=== PATIENT | female | born 2000 | race Asian ===

== ENCOUNTER 2022-12-24 12:47 | Outpatient (REF) | payer MEDICAID, SELFPAY ==
--- NOTE | ~2022-12-24 | XR_ITS ---
EXAMINATION: XR ANKLE, LEFT CLINICAL INFORMATION: Sprain injury 8 weeks prior with continued pain. COMPARISON: None available. TECHNIQUE: AP, lateral, and mortise views of the left ankle. FINDINGS: No fracture. Alignment is anatomic. No erosions. Joint spaces are maintained. Soft tissues are normal. XR/XR ankle LT min 3V IMPRESSION: Normal left ankle.
== END 2022-12-24 12:48 | disposition home or self-care (01) ==
LOC: HO.HHCX 12:47
PROVIDERS: Visit Provider Registered Nurse
DX: S93.402S Sprain of unspecified ligament of left ankle, sequela (principal)
CPT/HCPCS: 73610

== ENCOUNTER 2023-05-04 08:30 | Outpatient (RCR) | payer OTHER, SELFPAY ==
[2023-05-04 12:00] VITALS: BP 94/76; PULSE 83; TEMP 37.1
[2023-05-04 12:03] VITALS: BMI 28.0
--- NOTE | 2023-05-04 13:04 | PC.ADMIT ---
Patient is a 22 year old female who was referred to [facility] by her therapist d/t increased sxs of depression with passive SI with no plan or intent, increased anxiety and a history of self harm since October of 2021 by cutting her lower forearms superficially to cope with how she is feeling. Reports less than 5 incidents. Patient reports being triggered by her parner as she believes he is her only support system and feels he doesn't validate her feelings and he believes everything is in her head. Patient is currently unemployed. 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 Sue is alert and oriented x4. Calm and cooperative. She presents with depressed mood and anxious affect. She denied SI currently. I gave her a copy of her safety plan if needed. Medications reconciled with patient and patient's pharmacy. She reports taking medications as prescribed.
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
--- NOTE | 2023-05-06 15:22 | HO.PHP ---
Client's case has been opened and reviewed in treatment team.
--- NOTE | 2023-05-06 15:27 | HO.PHP ---
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 Pt has called out for 2 days due to illness. Pt reports she is currently not feeling sick but had cold symptoms yesterday and her daughter has tested positive for Covid and is symptomatic. Pt states she plans to come tomorrow if her daughter is able to stay with family and if pt continues to be symptom free, states she will wear a mask. Pt informed if she does call out for a 3rd day in a row she will have to discharge but pt informed she will be able to return once she is well. Pt States she will call us in the morning to let us know how she feels.
--- NOTE | 2023-05-07 10:13 | HO.IOP ---
Addendum entered by Sally Bowman LCSW 05/07/23 10:19: Pt reported she is safe. Original Note: At roughly 8:30, pt called to report she and her daughter are sick with active Covid SX?s. Pt uncertain when she will be well enough to return. This is Kaylin's 3rd missed day. Hull Inspector discussed discharge with the patient. Pt agreed to restarting with she is no longer sick.
== END 2023-05-07 23:59 | disposition home or self-care (01) ==
LOC: HO.PHPA 08:30
PROVIDERS: Visit Provider Psychiatry & Neurology Psychiatry
DX: F39 Unspecified mood [affective] disorder (principal); F43.10 Post-traumatic stress disorder, unspecified; R41.840 Attention and concentration deficit; F12.10 Cannabis abuse, uncomplicated; Z79.899 Other long term (current) drug therapy
CPT/HCPCS: 90791; 90853

== ENCOUNTER → 2023-05-04 08:30 | Outpatient (BNV) | payer OTHER, SELFPAY | PROVIDERS: Visit Provider Psychiatry & Neurology Psychiatry | DX: F39 Unspecified mood [affective] disorder (principal); F43.10 Post-traumatic stress disorder, unspecified; R41.840 Attention and concentration deficit; F12.10 Cannabis abuse, uncomplicated | CPT/HCPCS: 99233 ==

== ENCOUNTER 2023-10-14 13:40 | Outpatient (REF) | payer MEDICAID, SELFPAY ==
--- NOTE | ~2023-10-14 | XR_ITS ---
EXAMINATION: XR HAND, RIGHT CLINICAL INFORMATION: Injury. Pain and swelling. COMPARISON: None available. TECHNIQUE: Four views of the right hand. FINDINGS: The bones and soft tissues are normal. No fracture. Alignment is anatomic. Joint spaces are maintained. No erosions or soft tissue calcifications. XR/XR hand RT min 3V IMPRESSION: Normal right hand.
== END 2023-10-14 13:41 | disposition home or self-care (01) ==
LOC: HO.HHCX 13:40
PROVIDERS: Visit Provider Emergency Medicine
DX: M79.641 Pain in right hand (principal); S69.91XA Unspecified injury of right wrist, hand and finger(s), initial encounter
CPT/HCPCS: 73130